=== PATIENT | female | born 1995 | race Caucasian/White ===

== ENCOUNTER 2019-05-12 15:29 | Emergency (ER) | payer OTHER ==
[~2019-05-12] VITALS: Ht 167.6 cm; Wt 111.1 kg
[2019-05-12] MEDS ORDERED: BUSP5 PO (15:35)
[2019-05-12] MEDS ORDERED: LEVSOD25 (15:36)
== END 2019-05-12 16:54 | disposition home or self-care (01) ==
LOC: ER 15:29
DX: S40.012A Contusion of left shoulder, initial encounter (principal); S20.212A Contusion of left front wall of thorax, initial encounter; V49.9XXA Car occupant (driver) (passenger) injured in unspecified traffic accident, initial encounter; Z79.899 Other long term (current) drug therapy
CPT/HCPCS: 71046; 73030; 99284-25